=== PATIENT | female | born 1980 | race Caucasian/White ===

== ENCOUNTER 2023-11-23 17:25 | Emergency (ER) | payer OTHER, SELFPAY ==
--- NOTE | ~2023-11-23 | XR_ITS ---
XR hand LT min 3V Ordering provider: LIBBY Rubalcava History: . crush injury today,pain 1st, 2nd 3rd metacarpals fingers . Comparison: None. FINDINGS: BONES: No acute fracture or dislocation. JOINT SPACES: Well maintained. SOFT TISSUES: Unremarkable. IMPRESSION: No acute osseous abnormality left hand. Reviewed, dictated and finalized at location A.
[2023-11-23 17:39] VITALS: BP 165/102; PULSE 115; RESP 18; TEMP 37; O2SAT 100
[2023-11-23 17:41] VITALS: BP 165/102; PULSE 115; RESP 18; TEMP 37; O2SAT 100
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
== END 2023-11-23 18:25 | disposition home or self-care (01) ==
PROVIDERS: Emergency Provider Nurse Practitioner
DX: S60.222A Contusion of left hand, initial encounter (principal); X58.XXXA Exposure to other specified factors, initial encounter; K74.60 Unspecified cirrhosis of liver
CPT/HCPCS: 73130; 99213; G0463